=== PATIENT | female | born 1960 | race African-American/Black ===

== ENCOUNTER 2017-12-27 17:22 | Emergency (ER) | payer MEDICAID, OTHER ==
[2017-12-27 17:38] VITALS: BP 176/97
[2017-12-27] MEDS ORDERED: cefTRIAXone VIAL(*) 1,000 MG VIAL IM ONE (18:06)
--- NOTE | 2017-12-27 18:09 | UC ---
Complaint Female HPI - HPI Summary HPI Summary: 57 yo BF c/o dysuria, urgency and frequency of urination x 1 month now has LBP with f/c and foul smelling urine - History Of Current Complaint Chief Complaint: UCGU Stated Complaint: FREQUENT URINATION Time Seen by Provider: 12/27/17 17:49 Hx Obtained From: Patient Hx Last Menstrual Period: na Onset/Duration: Lasting Weeks Timing: Constant Severity Initially: Moderate Severity Currently: Severe Pain Intensity: 0 - Allergies/Home Medications Allergies/Adverse Reactions: Allergies Allergy/AdvReac Type Severity Reaction Status Date / Time Penicillins Allergy Intermediate Unknown Verified 12/27/17 17:44 Reaction Details Sulfa (Sulfonamide Allergy Unknown Verified 12/27/17 17:44 Antibiotics) Reaction Details PMH/Surg Hx/FS Hx/Imm Hx Previously Healthy: Yes - Surgical History Surgical History: Yes Surgery Procedure, Year, and Place: tubal 1984 Rt ANKLE AND Rt WRIST FOR FX, 2011, 11/30 RT HIP REPLACEMENT - Social History Alcohol Use: Occasionally Alcohol Amount: daily Substance Use Type: Cocaine, Heroin Substance Use Comment - Amount & Last Used: smokes for 20 years, last time was several months ago Smoking Status (MU): Light Every Day Tobacco Smoker Type: Cigarettes Amount Used/How Often: SEVERAL CIGS/DAY Length of Time of Smoking/Using Tobacco: 20 YRS Have You Smoked in the Last Year: Yes When Did the Patient Quit Smoking/Using Tobacco: 2013 Household Exposure Type: Cigarettes - Immunization History Most Recent Influenza Vaccination: 2013 Most Recent Tetanus Shot: UTD Most Recent Pneumonia Vaccination: NONE Review of Systems Constitutional: Negative Skin: Negative Eyes: Negative ENT: Negative Respiratory: Negative Cardiovascular: Negative Gastrointestinal: Negative Genitourinary: Dysuria, Frequency, Urgency, Other - foul smelling urine Motor: Negative Neurovascular: Negative Musculoskeletal: Negative Neurological: Negative Psychological: Negative All Other Systems Reviewed And Are Negative: Yes Physical Exam Triage Information Reviewed: Yes Vital Signs: Initial Vital Signs Temp 36.7 C 12/27/17 17:31 Pulse 72 12/27/17 17:31 Resp 18 12/27/17 17:31 BP 176/97 12/27/17 17:31 Pulse Ox 99 12/27/17 17:31 Eye Exam: Normal ENT Exam: Normal Dental Exam: Normal Neck exam: Normal Neck: Positive: 1 Respiratory Exam: Normal Cardiovascular Exam: Normal Abdominal Exam: Normal Abdomen Description: Positive: CVA Tenderness (R), CVA Tenderness (L) Musculoskeletal Exam: Normal Neurological Exam: Normal Psychological Exam: Normal Skin Exam: Normal Complaint Female Dx - Course Course Of Treatment: suspect pyelo, UA positive, will load with Rocephin and tx as outpt as pt is not toxic w/o systemic signs of sepsis - Differential Dx/Diagnosis Provider Diagnoses: Pyelonephritis Discharge - Sign-Out/Discharge Documenting (check all that apply): Discharge - Discharge Plan Condition: Stable Disposition: HOME Prescriptions: Ciprofloxacin TAB* [Cipro 500 MG TAB*] 500 mg PO BID 10 Days #20 tab Patient Education Materials: Kidney Infection (ED) Referrals: No Primary Care Phys,NOPCP [Primary Care Provider] - - Billing Disposition and Condition Condition: STABLE Disposition: HOME
[2017-12-27] MEDS ORDERED: Lidocaine 1% MPF* 2 ML VIAL INJ ONE (18:23)
== END 2017-12-27 18:50 | disposition home or self-care (01) ==
LOC: UCEAST 17:22
DX: N12 Tubulo-interstitial nephritis, not specified as acute or chronic (principal); Z87.891 Personal history of nicotine dependence
CPT/HCPCS: 81003; 87077; 87086; 87186; 96372; 99212; G0463; J0696

== ENCOUNTER 2023-03-18 10:58 | Observation (INO) ==
[2023-03-18] MEDS ORDERED: Iodixanol (CONTRAST) 320 MG/ML 100 ML SDV IV ONE (11:11)
[2023-03-18 11:19] LABS: ABS Basophils 0.1 10^3/uL (0.0-0.1); ABS Eosinophils 0.4 10^3/uL (0.0-0.5); ABS Lymphocytes 3.1 10^3/uL (1.0-4.8); ABS Monocytes 0.5 10^3/uL (0.0-0.9); ABS Neutrophils 3.2 10^3/uL (1.5-7.6); ABS Nucleated RBC 0.03 10^3/ul; Eosinophil % 5.6 %; Hematocrit 39.5 % (35-45); Hemoglobin 13.4 g/dL (11.5-14.3); Lymphocyte % 42.5 %; Mean Corpuscular Hemoglobin 28.7 pg (27-33); Mean Corpuscular Hgb Conc 33.9 g/dL (31-36); Mean Corpuscular Volume 84.6 fL (80-97); Mean Platelet Volume 7.9 fL (7.5-11.2); Nucleated Red Blood Cells % 0.4 /100 WBC (0.0-0.4); Platelet Count 326 10^3/uL (150-450); Red Blood Count 4.68 10^6/uL (3.63-4.92); Red Cell Distribution Width 13.6 % (12-17); White Blood Count 7.3 10^3/uL (3.8-11.8)
[2023-03-18 11:37] LABS: Albumin 4.1 g/dL (3.2-5.2); Albumin/Globulin Ratio 1.3 (1-3); Calcium 9.5 mg/dL (8.6-10.3); Creatinine, Serum 1.07 mg/dL (0.51-0.95); Globulin 3.1 g/dL (2-4); HDL Cholesterol 52.4 mg/dL; Potassium 3.9 mmol/L (3.5-5.0); Total Bilirubin 0.7 mg/dL (0.2-1.0); Total Protein 7.2 g/dL (6.4-8.9)
[2023-03-18 11:43] LABS: Activated Partial Thrombo Time 34.5 seconds (26.0-38.0); INR 1.01 (0.88-1.18)
[2023-03-18 12:04] LABS: Urine Appearance Cloudy; Urine Bilirubin Negative (Negative); Urine Blood 2+ (Negative); Urine Color Yellow; Urine Glucose Negative (Negative); Urine Ketones Negative (Negative); Urine Nitrite Positive (Negative); Urine Protein Negative (Negative); Urine Specific Gravity 1.034 (1.002-1.030); Urine Urobilinogen Negative (Negative)
[2023-03-18 12:36] LABS: Urine Bacteria 2+ (Absent); Urine Red Blood Cell 3+(>10/hpf) (Absent); Urine Squamous Epithelial Cell Present (Absent); Urine White Blood Cell 2+(11-20/hpf) (Absent)
[2023-03-18] MEDS ORDERED: cefTRIAXone 1 gm/50 mL D5W 1 GM/50 ML BAG IV ONE (14:10)
[2023-03-18] MEDS ORDERED: Gadoteridol (CONTRAST) 279.3 MG/ML 10 ML IV ONE (15:19)
[2023-03-18] MEDS ORDERED: Albuterol HFA INHALER 8 gm MDI INH PRN (18:19)
[2023-03-18] MEDS ORDERED: Enoxaparin 40 MG/0.4 ML SYR SUBCUT SCH (20:00)
[2023-03-19] MEDS ORDERED: Benzocaine (plain) Lozenge 15 MG PO ONE (06:45)
[2023-03-19] MEDS ORDERED: Benzocaine/Menthol LOZ PO PRN (08:25)
[2023-03-19] MEDS ORDERED: Fluticasone NASAL SPRAY 50MCG 16 gm SPRAY BTL INTRANASAL SCH (09:00)
[2023-03-19] MEDS ORDERED: Benzocaine (plain) Lozenge 15 MG PO PRN (11:00)
[2023-03-19 15:21] VITALS: BP 147/84
== END 2023-03-19 15:05 | disposition home or self-care (01) ==
LOC: ED 10:58 → EDHOLD 10:58 → MEDTELE 18:13
PROVIDERS: ADMIT Internal Medicine; ATTEND Internal Medicine